=== PATIENT | male | born 1965 | race Caucasian/White ===

== ENCOUNTER → 2022-08-22 09:56 | Outpatient (BNVA) | payer MEDICARE, SELFPAY | PROVIDERS: Visit Provider Surgery | DX: Z12.11 Encounter for screening for malignant neoplasm of colon (principal) | CPT/HCPCS: 99024 ==

== ENCOUNTER 2022-10-07 08:55 | Day surgery (SDC) | payer MEDICARE, SELFPAY ==
[2022-10-03 10:12] VITALS: BMI 29.2
--- NOTE | 2022-10-07 06:01 | W.PM.OPSFHP ---
Same Day Surgery H&P Indication for Procedure/HPI DATE OF PROCEDURE: October 07, 2022 CHIEF COMPLAINT/INDICATIONFOR SURGICAL PROCEDURE: Screening colonoscopy PREOP DIAGNOSIS: Screening colonoscopy PLANNED PROCEDURE: Operation Date: 10/07/22 10:30 Proposed Procedures p Colonoscopy 72386,Z12.11(Not Applicable) - Rafa Fall MD This is a pleasant 57-year-old gentleman referred to my practice for screening colonoscopy. Was tested occult blood positive in stool. Patient never had a colonoscopy before and denies history of colon cancer change in bowel habits. ROS All systems have been reviewed negative except as for the above or per problem list. Medications/Allergies* Home Medications Medication Instructions Recorded Confirmed Type albuterol sulfate 2.5 mg/0.5 mL 5 mg inhalation Q4H 08/22/22 10/07/22 History solution for nebulization albuterol sulfate 90 mcg/actuation 1 inh inhalation Q4H 08/22/22 10/07/22 History aerosol inhaler celecoxib 200 mg capsule (Celebrex) 200 mg PO DAILY 08/22/22 10/07/22 History fluticasone fur. 100 mcg-umeclid 1 inh inhalation DAILY 08/22/22 10/07/22 History 62.5 mcg-vilant 25 mcg inhalat.powder (Trelegy Ellipta) gabapentin 300 mg capsule 300 mg PO DAILY 08/22/22 10/07/22 History quinine-vitamin E capsule 1 cap PO BEDTIME PRN leg cramps 10/03/22 10/07/22 History Allergies/Adverse Reactions Allergy/AdvReac Type Severity Reaction Status Date / Time No Known Allergies Allergy Verified 10/07/22 10:22 Pertinent Exam Findings alert, oriented x 3, clear to auscultation bilaterally, regular rate & rhythm and procedure specific exam findings (Abdominal exam nontender nondistended soft) Recommendations Surgery/Procedure today (Colonoscopy with possible biopsy) Other Plans: Plan of care; After thorough history and physical examination and reviewing the chart, plan to perform screening colonoscopy. I discussed with the patient in details the risks,benefits,alternatives and indications.The risk of aspiration, bleeding, soft tissue injury, perforation of the colon ,missed lesions and other potential concomitant complications were explained to the patient in details,also the potential need for Laproscoy/Laparotomy to repair any related complications including but not limited to colectomy and or Closotomy.The patient understood this well and did agree to proceed. Rationale was carefully and clearly discussed with the patient.Appropriate informed consent have been reviewed and signed All questions have been answered and all concerns have been addressed to patient's satisfaction. Verbal and written Instructions were given to the patient for colonoscopy prep Coding Level of Care Code Acute Strike On Machine Operator for Vladislav Mcintosh
[2022-10-07 09:33] VITALS: BP 124/78; PULSE 59; RESP 16; TEMP 36.1; O2SAT 96
[2022-10-07] MEDS: sodium chloride 0.9% 1,000 ML 30 ML IV (09:39)
--- NOTE | 2022-10-07 10:40 | ANES.PREANE2 ---
Pre-Anesthetic Assessment Height/Weight: Height 1.52 m Weight 68.039 kg Temp Pulse Resp BP Pulse Ox O2 Del Method 97 F L 59 L 16 124/78 96 10/07/22 09:33 10/07/22 09:33 10/07/22 09:33 10/07/22 09:33 10/07/22 09:33 10/07/22 09:33 Preop Diagnosis: Screening colonoscopy Operation Date: 10/07/22 10:30 Proposed Procedures p Colonoscopy 22158,Z12.11(Not Applicable) - Rafa Fall MD Familial anesthetic complications: none Was Beta Bridger taken within 24 hours: N/A Was Clonidine taken within 24 hours: N/A Last intake: Intake Last Liquid Date 10/06/22 Last Liquid Time 22:00 Last Solid Date 10/05/22 Last Solid Time 00:00 Social Alcohol (occasional) and No tobacco (quit 1 year ago) Exam alert, oriented x 3, clear to auscultation bilaterally and regular rate & rhythm Airway Submandibular: within normal limits Cervical ROM: within normal limits Mallampati: Class I Dentition: false Pulmonary Asthma and Chronic Obstructive Pulmonary Disease Left lower lobectomy CV/HEM None reported None reported Hepatic Hepatitis (hepatitis C) GI Gastroesophageal Reflux Disease (certain meals) Metabolic None reported Musc/skel Osteoarthritis/DJD Neuropsych None reported Anesthetic Plan ASA status: 3 Anesthesia: MAC Risk of > 500 ml blood loss (7ml/kg in children): No Medications/Allergies Home Medications Medication Instructions Recorded Confirmed Last Taken Type albuterol sulfate 2.5 mg/0.5 mL 5 mg inhalation Q4H 08/22/22 10/07/22 10/02/22 History solution for nebulization albuterol sulfate 90 mcg/actuation 1 inh inhalation Q4H 08/22/22 10/07/22 10/07/22 History aerosol inhaler celecoxib 200 mg capsule (Celebrex) 200 mg PO DAILY 08/22/22 10/07/22 10/05/22 History fluticasone fur. 100 mcg-umeclid 1 inh inhalation DAILY 08/22/22 10/07/22 10/06/22 History 62.5 mcg-vilant 25 mcg inhalat.powder (Trelegy Ellipta) gabapentin 300 mg capsule 300 mg PO DAILY 08/22/22 10/07/22 10/05/22 History quinine-vitamin E capsule 1 cap PO BEDTIME PRN leg cramps 10/03/22 10/07/22 10/05/22 History Allergies Allergy/AdvReac Type Severity Reaction Status Date / Time No Known Allergies Allergy Verified 10/07/22 10:22 Current Medications Generic Name Dose Route Start Last Admin Trade Name Freq PRN Reason Stop Dose Admin Sodium Chloride 1,000 mls @ 30 mls/hr 10/07/22 09:15 10/07/22 09:39 Sodium Chloride 0.9% IV 30 mls/hr .Q24H SALOMÓN Administration Data Anesthesia Cardiac Studies: No Data to Display
[2022-10-07 11:49] VITALS: BP 114/66; PULSE 51; RESP 12; TEMP 36.1; O2SAT 93
[2022-10-07 12:01] VITALS: BP 98/63; PULSE 57; RESP 17; O2SAT 100
--- NOTE | 2022-10-07 15:38 | ANE.PACU2 ---
Inpatient post-anesthesia follow up: Airway intact: Yes Vital signs: Temperature 97.0 F Pulse Rate 57 Respiratory Rate 17 Blood Pressure 98/63 Pulse Oximetry 100 Oxygen Delivery Me thod Room Air Oxygen Flow Rate Fraction of Inspir ed Oxygen Hydration adequate: Yes Nausea and vomiting: No Pain level: 2 Mental status: Baseline
== END 2022-10-07 12:11 | disposition home or self-care (01) ==
PROVIDERS: Visit Provider Surgery
PROC: 0DJD8ZZ Inspection of Lower Intestinal Tract, Via Natural or Artificial Opening Endoscopic (ICD-10-PCS; CPT 45378; principal; 2022-10-07 10:30)
DX: Z12.11 Encounter for screening for malignant neoplasm of colon (principal); D12.5 Benign neoplasm of sigmoid colon; K57.30 Diverticulosis of large intestine without perforation or abscess without bleeding; J44.9 Chronic obstructive pulmonary disease, unspecified; Z90.2 Acquired absence of lung [part of]; Z86.19 Personal history of other infectious and parasitic diseases; K21.9 Gastro-esophageal reflux disease without esophagitis
CPT/HCPCS: 45385; 88305; J2704; J7030

== ENCOUNTER → 2022-10-17 13:59 | Outpatient (BNVA) | payer MEDICARE, SELFPAY | PROVIDERS: PCP Family Medicine; Referring Provider Surgery; Visit Provider Surgery | DX: Z09 Encounter for follow-up examination after completed treatment for conditions other than malignant neoplasm (principal); K63.5 Polyp of colon; K57.31 Diverticulosis of large intestine without perforation or abscess with bleeding | CPT/HCPCS: 99213 ==

== ENCOUNTER 2025-01-11 14:55 | Outpatient (CLI) | payer MEDICARE, SELFPAY ==
--- NOTE | 2025-01-11 15:01 | CTR_ITS ---
PROCEDURE INFORMATION: Exam: CT Chest With Contrast; Diagnostic Exam date and time: 01/11/2025 3:45 PM Age: 60 years old Clinical indication: Condition or disease; Other: Mass with drainage; Prior surgery; Surgery date: 6+ months; Surgery type: Left lung, ribs x 2, valve; Additional info: Mass w/drainage lt lower chest wall. Left lower chest mass with drainage x2 months -bb, 2017left lower lung removed for pneumothorax, 2023 10 valves in lungs for leaks? ? TECHNIQUE: Imaging protocol: Diagnostic computed tomography of the chest with contrast. Radiation optimization: All CT scans at this facility use at least one of these dose optimization techniques: automated exposure control; mA and/or kV adjustment per patient size (includes targeted exams where dose is matched to clinical indication); or iterative reconstruction. Contrast material: OMNI 350; Contrast volume: 100 ml; Contrast route: INTRAVENOUS (IV); COMPARISON: CT chest wo/w con [id number] 07/05/2024 11:17 AM RADIATION DOSE METRICS: Total DLP (mGy-cm): 239.63 FINDINGS: Lungs: The lungs are hyperinflated. Note made of mild nodular thickening and enhancement of the left anterior upper lobe pleura (image 18 series 3), and also in the left mid/lower lungs. Worrisome for malignancy until proven otherwise. Recommend correlation. Large bulla in the left lung spanning apex to base, with mild nodular wall thickening. Layering fluid in the dependent aspects (with punctate internal bowel for example on image 30, 54 series 3. Moderate to large bullae in the right lung, most prominently right apex. Severe centrilobular emphysematous change in the lungs. Few scattered nodules in the right lung, for example a flat nodule measuring 4 x 9 mm in the posterior right upper lobe on image 15 series 3, 4 mm nodule in the right lower lobe on image 39 series 3. No distinct nodules in the left lung. Pleural spaces: See Lungs finding. Heart: Normal heart size. No pericardial fluid. RV/LV ratio is 1/1. Mediastinal space: [id number] volume loss in the left hemithorax, with mild leftward mediastinal shift. Lymph nodes: Small anterior pericardial lymph nodes measuring up to 7 x 14 mm. No distinct mediastinal hilar adenopathy. Vasculature: No PE. No evidence of cardiac strain. Bones/joints: No distinct worrisome lytic or blastic osseous lesion. Note made of mild heterogeneous expansile mass of the left 7th costal cartilage (image 55 series 3). Soft tissues: [id number] asymmetric nodular thickening of the musculature and skin overlying the left costal cartilage, suspicious for metastatic disease. CT/CT chest w con* [id number] IMPRESSION: 1. No PE. No evidence of cardiac strain. 2. Hyperinflated lungs with severe bullous emphysematous change. 3. Fluid/trace gas bubbles within the large left bulla, concerning for superimposed infection. Recommend correlation. 4. Scattered nodular thickening of the left pleura suspicious for metastatic disease. 5. Suspect metastatic disease in the left 7th costal cartilage and overlying chest wall musculature and skin. 6. Small anterior pericardial lymph nodes suspicious for metastatic adenopathy.
[2025-01-11 15:47] LABS: Blood Urea Nitrogen 14 mg/dL (8-23); Glomerular Filtration Rate 114.3 mL/min (90-130)
[2025-01-11] MEDS: iohexol 350 mg/mL 500 mL Btl (per mL) IV (15:57)
== END 2025-01-11 14:56 | disposition home or self-care (01) ==
LOC: RAD 14:57
PROVIDERS: Radiology Neuroradiology; PCP Family Medicine; Visit Provider Family Medicine
DX: R91.8 Other nonspecific abnormal finding of lung field (principal); J43.9 Emphysema, unspecified; J92.9 Pleural plaque without asbestos; R93.89 Abnormal findings on diagnostic imaging of other specified body structures; R59.0 Localized enlarged lymph nodes; J43.2 Centrilobular emphysema; R93.7 Abnormal findings on diagnostic imaging of other parts of musculoskeletal system
CPT/HCPCS: 71260; 82565; 84520